=== PATIENT | male | born 1955 | race Caucasian/White ===

== ENCOUNTER 2017-02-11 13:49 | Day surgery (SDC) | payer OTHER ==
[2017-02-11] MEDS ORDERED: fentaNYL 100 MCG/2 ML INJ ONE ×2 (13:52→14:54)
[2017-02-11] MEDS ORDERED: MIDAZOLAM 2 MG/2 ML VIAL ONE ×2 (13:52→14:48)
[2017-02-11] MEDS ORDERED: VERAPAMIL 5 MG/2 ML VIAL ONE (13:52)
[2017-02-11] MEDS ORDERED: HEPARIN 10,000 UNIT/10 ML MDV ONE (13:52)
[2017-02-11] MEDS ORDERED: LIDOCAINE 1% 300 MG/30 ML SDV ONE (13:52)
[2017-02-11] MEDS ORDERED: IOPAMIDOL (ISOVUE-370) 150 ML BTL IV ONE (13:53)
[2017-02-11] MEDS ORDERED: FAMOTIDINE 20 MG TAB PO ONE (14:07)
[2017-02-11] MEDS ORDERED: ASPIRIN EC 325 MG TAB PO ONE ×2 (14:07→14:18)
[2017-02-11] MEDS ORDERED: DIAZEPAM 5 MG TAB PO ONE (14:07)
[2017-02-11] MEDS ORDERED: diphenhydrAMINE 25 MG CAP PO ONE ×2 (14:07→14:18)
[2017-02-11] MEDS ORDERED: NS 1,000 ML IV ONE (14:07)
[2017-02-11] MEDS ORDERED: FAMOTIDINE 20 MG TAB ONE (14:18)
[2017-02-11] MEDS ORDERED: DIAZEPAM 5 MG TAB ONE (14:18)
--- NOTE | 2017-02-11 14:33 | PDPROPOC ---
Sedation Plan of Care Sedation Plan of Care: vital signs stable, mental status noted, patient educated of risks, benefits, alternatives, patient can tolerate sedation ASA Classification: ASA 2 Planned drugs: fentanyl, midazolam Mallampati Score: Class 1 Mallampati Reference Image: Patient passed 3-3-2 rule?: Yes
--- NOTE | 2017-02-11 14:34 | PDHPUP ---
History & Physical Update H&P update statement: This history and physical update is based on an assessment of the patient which was completed after admission or registration (within 24 hours), but prior to the surgery/procedure. H&P update: H&P reviewed & patient examined, no change in patient's condition since H&P completed (Risks and benifits discussed.)
--- NOTE | 2017-02-11 15:13 | PDDXCAT ---
Diagnostic Cath Note - . Date: 02/11/17 Detacker: Zana Indication: CCC Class III and IV angina on medical treatment (Positive troponin) - Procedure Access: right wrist Procedure: left heart catheterization, coronary angiography, left ventriculogram - Materials Left Heart Cath size: 5F Left Heart Cath materials: pigtail, other ([email or web address]) - Findings-Left Heart Catheterization LM: Unobstructed LAD: Unobstructed, tortuous LCX: Dominant: Unobstructed RCA: Non dominant EDP: 10 mm of mercury LVEF: 65% Wall motion: Normal Complications: None Estimated blood loss: <50ml Closure method: TR Band Assessment: For details of the procedure please see the attached computer report. Sedation: 6 mg Versed, 150 mcg fentanyl. Contrast 70 cc. Radiation 2.2 minutes 235 mGy. Conclusions: Mild nonobstructive atherosclerotic cardiovascular disease with tortuous vessels consistent with longstanding hypertension. Normal left ventricular systolic function with normal filling pressures. Plan: Aggressive secondary prevention with clinical follow-up. Result conveyed to Dr. Dean. Patient Problems: Problems Problem Status Onset Hyperlipidemia Acute Hypertension Acute Chest pain Acute
[2017-02-11] MEDS ORDERED: NITROGLYCERIN 0.4 MG BTL SL PRN (15:14)
[2017-02-11] MEDS ORDERED: ATROPINE SULFATE 1 MG/10 ML SYR IVP PRN (15:14)
[2017-02-11] MEDS ORDERED: ONDANSETRON 4 MG/2 ML VIAL IVP PRN (15:14)
== END 2017-02-11 17:45 | disposition home or self-care (01) ==
LOC: FCATH 13:49
PROVIDERS: ATTEND Internal Medicine Interventional Cardiology
PROC: B2151ZZ Fluoroscopy of Left Heart using Low Osmolar Contrast (ICD-10-PCS; principal; 2017-02-11)
PROC: B2111ZZ Fluoroscopy of Multiple Coronary Arteries using Low Osmolar Contrast (ICD-10-PCS; principal; 2017-02-11)
PROC: 4A023N7 Measurement of Cardiac Sampling and Pressure, Left Heart, Percutaneous Approach (ICD-10-PCS; principal; 2017-02-11)
DX: I25.110 Atherosclerotic heart disease of native coronary artery with unstable angina pectoris (principal); R74.8 Abnormal levels of other serum enzymes; I10 Essential (primary) hypertension; E78.5 Hyperlipidemia, unspecified; Z88.0 Allergy status to penicillin
CPT/HCPCS: 93458; C1769; J1644; J2250; J3010; Q9967

== ENCOUNTER → 2017-03-07 | Outpatient (CLI) | payer OTHER ==
[~2017-03-07] MED LIST: IOPAMIDOL (ISOVUE 370) 100 ML BTL IV ONE
== END ==
LOC: CIMAGING 08:13
PROVIDERS: ATTEND Internal Medicine Cardiovascular Disease
DX: I77.810 Thoracic aortic ectasia (principal); I51.7 Cardiomegaly; Q25.72 Congenital pulmonary arteriovenous malformation
CPT/HCPCS: 71275-PO; Q9967

== ENCOUNTER → 2017-07-03 | Outpatient (CLI) | payer OTHER | LOC: BRMIMAGING 08:56 | PROVIDERS: ATTEND Internal Medicine | DX: J98.09 Other diseases of bronchus, not elsewhere classified (principal); R91.1 Solitary pulmonary nodule; I71.2 Thoracic aortic aneurysm, without rupture | CPT/HCPCS: 71046-PO ==

== ENCOUNTER → 2017-09-11 | Outpatient (CLI) | payer OTHER | LOC: BMCIMAGING 10:30 | PROVIDERS: ATTEND Internal Medicine | DX: R22.42 Localized swelling, mass and lump, left lower limb (principal) ==